=== PATIENT | male | born 1950 | race Caucasian/White ===

== ENCOUNTER 2019-12-21 07:10 | Day surgery (SDC) | payer BC ==
[~2019-12-21] VITALS: Ht 177.8 cm; Wt 96.2 kg
[~2019-12-21 07:10] MED LIST: GLUCOPHAGE1000 MG PO; HYDROCHLOROTHIA50 MG PO; HYTRIN5 MG PO; JANUVIA100 MG PO; K-DUR20 MEQ PO; LISINOPRIL40 MG PO; METOPROLOL TART25 MG PO; NAPROSYN500 MG PO; NORVASC10 MG PO; PROSCAR5 MG PO
[2019-12-21 07:39] LABS: CALC OSMOLALITY 278 mosm/kg (275-300); CALCIUM 8.7 mg/dL (8.5-10.1); CARBON DIOXIDE 29.4 mmol/L (21.0-32.0); CHLORIDE - SERUM 101 mmol/L (98-107); GLUCOSE 144 mg/dL (74-106); POTASSIUM - SERUM 3.4 mmol/L (3.5-5.1); SODIUM 137 mmol/L (136-145); UREA NITROGEN 17 mg/dL (7-18); eGFR NON AFRICAN AMERICAN 79 mL/min (90-120)
[2019-12-21 09:12] LABS: HEMATOCRIT 38.4 % (42.0-54.0); HEMOGLOBIN 12.1 g/dL (13.5-17.5); MCH 27.2 pg (26.0-34.0); MCHC 31.5 g/dL (31.0-37.0); MCV 86.3 fL (80.0-100.0); MEAN PLATELET VOLUME 10.6 fL (7.4-10.4); RBC 4.45 10x6/uL (4.20-6.10); RDW 12.7 % (11.5-14.5); WBC 3.9 10x3/uL (4.8-10.8)
[2019-12-21 09:20] VITALS: BP 137/75; Ht 177.8 cm; Wt 96.2 kg
[2019-12-21] MEDS ORDERED: HYDROCODON-ACE1 EA10 PO (11:43)
--- NOTE | 2019-12-21 12:55 | NUR ---
RIGHT FOREARM PIV DC'D WITH TIP INTACT. ASSISTED PATIENT TO DRESS IN PERSONAL CLOTHING WHILE KEEPING LEFT ARM IN SLING IN GOOD POSITION. DEMONSTRATED TO PATIENT HOW TO KEEP SLING IN GOOD POSITION ON ARM TO KEEP ARM SUPPORTED WHILE NERVE BLOCK IS IN EFFECT. [id number] DISCHARGE INSTRUCTIONS REVIEWED WITH PATIENT
--- NOTE | 2019-12-25 11:11 | OP ---
PATIENT NAME: TERRANCE GOLDMAN MEDICAL RECORD: [id number] :54 LOCATION:[facility] ADMISSION DATE: SURGEON: ILAINA BAJWA MD DATE OF OPERATION: 12/21/2019 PREOPERATIVE DIAGNOSIS: Painful olecranon bursitis of the left elbow. POSTOPERATIVE DIAGNOSIS: Painful olecranon bursitis of the left elbow. PROCEDURE: Excision of left elbow olecranon bursa. SURGEON: Iliana Bajwa MD FINAL CIGAR AND BOX EXAMINER: ALLI Loyola INTRAOPERATIVE COMPLICATIONS: None. 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 The specimen was sent away for final pathologic evaluation. OPERATIVE SUMMARY IN DETAIL: After obtaining the appropriate preoperative orthopedic surgery consent as well as anesthetic consultation, evaluation and clearance, the patient was brought to the operating room and placed on the operating table in supine position. After general laryngeal mask airway was administered, tourniquet was placed about the proximal aspect of the left upper extremity. Left upper extremity was then prepped and draped in routine sterile fashion. Arm was elevated and exsanguinated, tourniquet inflated to 250 mmHg. Incision was made in the midline over the olecranon, taken down to the level of the bursal sac, which was very friable and thin. The entire area was debrided segmentally using rongeur, curettage, as well as scalpel, and once all of the tissue had been removed, copious lavage and again with rongeur and curettage were utilized to remove all white material. This was then irrigated and closed with 2-0 Vicryl followed by 3-0 Prolene by ALLI Loyola. Sterile dressings were applied. Tourniquet was deflated. The patient was awakened and taken to the recovery room in stable condition. All final needle and sponge counts were correct. TRANSINT:[id number] Voice Confirmation ID: [id number] DOCUMENT ID: [id number] ILIANA BAJWA MD at 1111 CC: [id number] DICTATION DATE: 12/21/19 1147 [employer] SALES REPRESENTATIVE: 12/21/19 [address] [facility] 12/21/19 [id number] [place] [address]
== END 2019-12-21 13:10 | disposition home or self-care (01) ==
LOC: D.OPS 07:10 → D.PAN 10:30 → D.OPS 13:10
PROVIDERS: Anesthesiology; ATTEND Orthopaedic Surgery
DX: M70.22 Olecranon bursitis, left elbow (principal); E11.9 Type 2 diabetes mellitus without complications; Z79.84 Long term (current) use of oral hypoglycemic drugs; M25.622 Stiffness of left elbow, not elsewhere classified